=== PATIENT | male | born 1980 | race Caucasian/White ===

== ENCOUNTER 2017-08-01 18:38 | Emergency (ER) | payer MEDICAID ==
[2017-08-01 18:58] VITALS: BP 142/90
--- NOTE | 2017-08-01 19:13 | EDM.PDOC ---
ED HPI GENERAL MEDICAL PROBLEM - General Chief Complaint: Headache Stated Complaint: HEADACHE FOR 2 DAYS [id number] Time Seen by Provider: 08/01/17 19:08 Source of Information: Reports: Patient History Limitations: Reports: No Limitations - History of Present Illness INITIAL COMMENTS - FREE TEXT/NARRATIVE: 36 yo white male c/o frontal headache X 2 days. 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 Right Frontal Head Pain Score (Numeric/FACES): 5 - Related Data Allergies Allergy/AdvReac Type Severity Reaction Status Date / Time No Known Allergies Allergy Verified 03/10/15 00:38 Home Meds: Home Meds Cetirizine [ZyrTEC] 10 mg PO DAILY 03/10/15 [History] Ibuprofen [Advil] 800 mg PO Q6H PRN 03/10/15 [History] Past Medical History - Past Health History Medical/Surgical History: Denies Medical/Surgical History Social & Family History - Tobacco Use Smoking Status *Q: Never Smoker Second Hand Smoke Exposure: No - Caffeine Use Caffeine Use: Reports: Soda, Tea - Recreational Drug Use Recreational Drug Use: No ED ROS ENT - Review of Systems Review Of Systems: See Below Constitutional: Reports: No Symptoms HEENT: Reports: No Symptoms, Rhinitis, Sinus Problem Respiratory: Reports: No Symptoms Cardiovascular: Reports: No Symptoms Endocrine: Reports: No Symptoms GI/Abdominal: Reports: No Symptoms : Reports: No Symptoms Musculoskeletal: Reports: No Symptoms Skin: Reports: No Symptoms Neurological: Reports: Headache Psychiatric: Reports: No Symptoms Hematologic/Lymphatic: Reports: No Symptoms Immunologic: Reports: No Symptoms ED EXAM, ENT - Physical Exam Exam: See Below Exam Limited By: No Limitations General Appearance: Alert, WD/WN, No Apparent Distress Eye Exam: Bilateral Eye: EOMI, PERRL Ears: Normal Canal, Hearing Grossly Normal, TM Bulging Nose: Normal Inspection, Clear Rhinorrhea, Nasal Swelling (left most) Mouth/Throat: Normal Inspection, Normal Gums Head: Atraumatic, Normocephalic Neck: Normal Inspection, Supple Respiratory/Chest: No Respiratory Distress, Lungs Clear Cardiovascular: Normal Peripheral Pulses GI/Abdominal: Normal Bowel Sounds Back: Normal Inspection Extremities: Normal Inspection Neurological: Alert, Oriented, CN II-XII Intact Psychiatric: Normal Affect Skin: Warm, Dry Lymphatic: No Adenopathy Course - Vital Signs Last Recorded V/S: Last Vital Signs Temp 36.6 C 08/01/17 18:48 Pulse 79 08/01/17 18:48 Resp 18 08/01/17 18:48 BP 142/90 H 08/01/17 18:48 Pulse Ox 99 08/01/17 18:48 Departure - Departure Time of Disposition: 19:11 Disposition: Home, Self-Care 01 Condition: Good Clinical Impression: Sinus headache - Discharge Information Additional Instructions: Increase intake of Water / Juice Tahe the MEDROL DOSE PACK 4mg as prescribed only and complete Continue w/ ZYRTEC QD Try [employer] Vaporizer Stop Mucus producing foods ( Dairy, Processed foods) F/U w/ PCP
== END 2017-08-01 19:24 | disposition home or self-care (01) ==
LOC: DL.ED 18:38
DX: R51 Headache (principal); Z79.899 Other long term (current) drug therapy
CPT/HCPCS: 99283